=== PATIENT | female | born 1995 | race Caucasian/White ===

== ENCOUNTER 2024-03-09 17:08 | Outpatient (CLI) | payer OTHER, SELFPAY ==
--- OUTSIDE RECORDS SUMMARY | 2024-03-09 17:20 | XMS_ITS | Referral Summary ---
Author Organization [facility] Address [address] [place] [address] Care Team Providers Care Compensator Worker Name Role Phone Evaristo [place] PA-C Primary Care Provide r Source Comments [facility],non-owned Affiliates and Associated Physician Practices is amultiple site organization consisting of ambulatory clinics and hospital sitesin [place], [place], [place] and [place]. This disclosure is being madepursuant to the Care Everywhere program and may not contain all information available regarding this patient. Last updated 17.[facility] [employer] Allergies No known active allergies Social History Tobacco Use Types Packs/Day Years Used Date Smoking Tobacco: Never Assessed Sex and Gender Information Value Date Recorded Sex Assigned at Not on file Gender Identity Not on file Sexual Orientation Not on file Plan of Treatment Not on file Administered Medications Care Teams Compensator Worker Relationship Specialty Start Date End Date Evaristo [place] PA-C [address] [place] [address] PCP - General Physician Recruitment And Outreach Assistant 02/29/20
--- OUTSIDE RECORDS SUMMARY | 2024-03-09 17:20 | XMS_ITS | Clinical Summary ---
Author Organization [facility] Address [address] [place] [address] Care Team Providers Care Hand Wood Sander Name Role Phone Evaristo [place] PA-C Primary Care Provide r Source Comments [facility],non-owned Affiliates and Associated Physician Practices is amultiple site organization consisting of ambulatory clinics and hospital sitesin [place], [place], [place] and [place]. This disclosure is being madepursuant to the Care Everywhere program and may not contain all information available regarding this patient. Last updated 17.[facility] [employer] Allergies No known active allergies Social History Tobacco Use Types Packs/Day Years Used Date Smoking Tobacco: Never Assessed Sex and Gender Information Value Date Recorded Sex Assigned at Not on file Gender Identity Not on file Sexual Orientation Not on file Plan of Treatment Health Maintenance Due Date Last Done Comments PAP SMEAR 1996 HIV SCREENING 05/01/2011 HEPATITIS C SCREENING 04/26/2014 DTAP/TDAP/TD VACCINES (1 - Tdap) 05/01/2015 HEPATITIS B VACCINE (1 of 3 - 19+ 3-dose series) 05/01/2015 COVID-19 VACCINE ( - 2023-2 5 season) 2023 INFLUENZA VACCINE (#1) 2023 DEPRESSION SCREENING 02/09/2024 ZOSTER VACCINE (1 of 2) 2046 HIB VACCINE Aged Out No longer eligi ble based on patient's age to complete this topic HPV VACCINE Aged Out No longer eligi ble based on patient's age to complete this topic MENINGOCOCCAL (Group B) VACCINE Aged Out No longer eligible based on patient's age to complete this topic MENINGOCOCCAL VACCINE Aged Out No mei ángel eligible based on patient's age to complete this topic PNEUMOCOCCAL VACCINE Aged Out No long er eligible based on patient's age to complete this topic Care Teams Hand Wood Sander Relationship Specialty Start Date End Date Evaristo [place] PA-C [address] [place] [address] PCP - General Physician Hand Buffing Wheel Former 02/29/20
--- OUTSIDE RECORDS SUMMARY | 2024-03-09 17:20 | XMS_ITS | Patient Health Summary ---
Author Organization [facility] Address [facility] [facility] [place] [address] Care Team Providers Care Camp Dishwasher Name Role Phone Evaristo [place] PA-C Primary Care Provide r Note from [facility],non-owned Affiliates and Associated Physician Practices is amultiple site organization consisting of ambulatory clinics and hospital sitesin [place], [place], [place] and [place]. This disclosure is being madepursuant to the Care Everywhere program and may not contain all information available regarding this patient. Last updated 17.[facility] Allergies No known active allergies Social History Tobacco Use Types Packs/Day Years Used Date Smoking Tobacco: Never Assessed Sex and Gender Information Value Date Recorded Sex Assigned at Not on file Gender Identity Not on file Sexual Orientation Not on file Procedures * SKIN TEST PPD - POINT OF CARE(Performed 02/29/2020) Performed for Screening examination for pulmonary tuberculosis Results * SKIN TEST PPD - POINT OF CARE (02/29/2020 2:50 PM TOP FLAVOR ATTENDANT) PPD [facility] Other MISCELLANEOUS SAMPLE S / Unknown 02/29/2020 2:50 PM TOP FLAVOR ATTENDANT Suzie Lebron [facility]TENSION SERVICE SPECIALIST-[facility] SU[facility] - POINT OF CARE ORDERABLES [facility] [address] [place] [address], [facility] [phone] Care Teams Camp Dishwasher Relationship Specialty Start Date End Date Evaristo [place] PA-C [address] [place] [address] PCP - General Physician Explosive Operator Fuse 02/29/20
[2024-03-09 17:55] LABS: Basophils Absolute Auto 0.1 K/mm3 (0.0-0.1); Basophils Percent Auto 0.5 % (0.2-1.2); Eosinophils Absolute Auto 0.1 K/mm3 (0-0.3); Eosinophils Percent Auto 0.9 % (0-4.4); Hematocrit 36.7 % (37.0-47.0); Hemoglobin 12.1 g/dL (12.0-15.0); Immature Granulocyte Absolute 0.03 K/mm3 (0.00-0.031); Immature Granulocyte Percent A 0.3 % (0-0.5); Lymphocytes Absolute Auto 2.09 K/mm3 (0.9-3.2); Lymphocytes Percent Auto 19.4 % (18.3-44.2); Mean Corpuscular Hemoglobin 28.4 pg (26-34); Mean Corpuscular Volume 86.2 fl (80-100); Mean Platelet Volume 11.1 fl (7.4-10.4); Monocytes Absolute Auto 0.6 K/mm3 (0.1-0.6); Monocytes Percent Auto 5.7 % (2.6-8.5); Neutrophils Absolute Auto 7.9 K/mm3 (1.3-6.7); Neutrophils Percent Auto 73.2 % (45.5-73.1); Platelet Count Result 259 k/mm3 (150-375); Red Blood Count 4.26 M/mm3 (4.2-5.4); White Blood Count 10.8 K/mm3 (4.5-10.0)
[2024-03-09 19:31] LABS: HIV 1/2 Ab P24 Ag Result Negative (Negative)
[2024-03-09 19:42] LABS: Rubella IgG Antibody 13.4 IU/ML
[2024-03-09 20:05] LABS: Hepatitis B Surface Anti Res Positive
[2024-03-10 13:22] LABS: Rapid Plasma Reagin Non-Reactive (NonReactive)
== END 2024-03-09 17:09 | disposition home or self-care (01) ==
LOC: ANHLAB 17:15
PROVIDERS: Visit Provider Obstetrics & Gynecology
DX: Z34.90 Encounter for supervision of normal pregnancy, unspecified, unspecified trimester (principal); Z3A.00 Weeks of gestation of pregnancy not specified
CPT/HCPCS: 36415; 80307; 85025; 86592; 86703; 86706; 86762; 86850; 87086; G0432

== ENCOUNTER 2024-05-03 08:48 | Outpatient (CLI) | payer OTHER, SELFPAY ==
--- NOTE | ~2024-05-03 | US_ITS ---
EXAMINATION: US OB /maternal detail DATE: 05/03/2024 10:36 INDICATION: Encounter for screening for malformation. TECHNIQUE: Real-time ultrasound of the pelvis was performed. COMPARISON: None. FINDINGS: There is a single living fetus in vertex presentation. The placenta is anterior, 3.1 cm from the cer vix. The cervical length is 3.0 cm on transabdominal images, which is normal.. heart rate is 15 0 beats per minute (bpm). The amniotic fluid volume is subjectively normal. The following biometric data were obtained: Biparietal diameter (BPD): 4.3 cm; head circumference (HC): 16.6 cm; abdominal circumference (AC): 14 .6 cm; femur length (FL): 2.9 cm. These measurements are concordant. Estimated weight is 291 g +/- 44 g, which correlates with the 78th percentile when 09/28/24 is u sed as estimated date of delivery. As single measurements, these parameters are each equal to the following estimated gestational ages: BPD: 19 weeks 1 days. HC: 19 weeks 2 days. AC: 19 weeks 6 days. FL: 19 weeks 0 days. estimated gestational age based solely on measurements from this exam is 19 weeks 2 days +/- 1 weeks 2 days. The cerebral ventricles, cerebellum, cisterna magna, nuchal fold, lip, and spine are normal. The hear t is normal. The diaphragm, stomach, kidneys, and bladder are normal. There are two umbilical arterie s to yield a 3-vessel cord. The cord insertion is normal. IMPRESSION: 1. Single living fetus in vertex presentation. 2. Estimated weight is 291 g +/- 44 g, which correlates with the 78th percentile when 09/28/24 is used as estimated date of delivery. 3. Normal anatomic survey. Reviewed, dictated and finalized at location A. IMPRESSION: 1. Single living fetus in vertex presentation. 2. Estimated weight is 291 g +/- 44 g, which correlates with the 78th pe rcentile when 8/21/25 is used as estimated date of delivery. 3. Normal anatomic survey.
--- OUTSIDE RECORDS SUMMARY | 2024-05-03 09:15 | XMS_ITS | Clinical Summary ---
Author Organization [facility] Address [address] [place] [address] Care Team Providers Care Laboratory Phlebotomist Name Role Phone Evaristo [place] PA-C Primary Care Provide r Source Comments [facility],non-owned Affiliates and Associated Physician Practices is amultiple site organization consisting of ambulatory clinics and hospital sitesin [place], [place], [place] and [place]. This disclosure is being madepursuant to the Care Everywhere program and may not contain all information available regarding this patient. Last updated 17.[facility] [employer] Allergies No known active allergies Social History [...] to complete this topic MENINGOCOCCAL (Group B) VACC INE SHARED DECISION-MAKING Aged Out No longer eligibl e based on patient's age to complete this topic MENINGOCOCCAL GROUPS A/C/Y/W VACCINE Aged Out No longer eligible b ased on patient's age to complete this topic PNEUMOCOCCAL VACCINE Aged Out No long er eligible based on patient's age to complete this topic Care Teams Laboratory Phlebotomist Relationship Specialty Start Date End Date Evaristo [place] PA-C [address] [place] [address] PCP - General Physician Peoplesoft Analyst 02/29/20
== END 2024-05-03 08:49 | disposition home or self-care (01) ==
PROVIDERS: Visit Provider Obstetrics & Gynecology
DX: Z36.3 Encounter for antenatal screening for malformations (principal)
CPT/HCPCS: 76805

== ENCOUNTER 2024-07-10 06:46 | Outpatient (CLI) | payer OTHER, SELFPAY ==
--- OUTSIDE RECORDS SUMMARY | 2024-07-10 06:52 | XMS_ITS | Clinical Summary ---
Author Organization [facility] Address [address] [place] [address] Care Team Providers Care Leaf Tier Name Role Phone Evaristo [place] PA-C Primary Care Provide r Source Comments [facility] Affiliates and Associated Physician Practices is amultiple site organization consisting of ambulatory clinics and hospital sitesin [place], [place], [place] and [place]. This disclosure is being madepursuant to the Care Everywhere program and may not contain all information available regarding this patient. 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 Gender Identity Not on file Sexual Orientation Not on file Plan of Treatment Health Maintenance Due Date Last Done Comments HIV SCREENING 05/01/2011 HEPATITIS C SCREENING 04/26/2014 DTAP/TDAP/TD VACCINES (1 - Tdap) 05/01/2015 HEPATITIS B VACCINE (1 of 3 - 19+ 3-dose series) 05/01/2015 COVID-19 VACCINE ( - 2023-2 5 season) 2023 DEPRESSION SCREENING 02/09/2024 INFLUENZA VACCINE (Season Ended) 2024 ZOSTER VACCINE (1 of 2) 2046 HIB [...] age to complete this topic Care Teams Leaf Tier Relationship Specialty Start Date End Date Evaristo [place] PA-C [address] [place] [address] PCP - General Physician Mannequin Molder 02/29/20
[2024-07-10 07:31] LABS: Glucose Fasting Gestational 95 mg/dL (>/=95)
[2024-07-10 09:08] LABS: Glucose 1 Hour Gest 133 mg/dL (>/=180)
[2024-07-10 10:03] LABS: Glucose 2 Hour Gest 134 mg/dL (>/= 155)
[2024-07-10 11:23] LABS: Glucose 3 Hour Gest 110 mg/dL (>/=140)
== END 2024-07-10 06:47 | disposition home or self-care (01) ==
LOC: ANHLAB 06:50
PROVIDERS: Visit Provider Obstetrics & Gynecology
DX: O24.419 Gestational diabetes mellitus in pregnancy, unspecified control (principal); Z3A.00 Weeks of gestation of pregnancy not specified
CPT/HCPCS: 36415; 82951; 82952

== ENCOUNTER 2024-08-31 08:10 | Outpatient (CLI) | payer OTHER, SELFPAY ==
--- NOTE | ~2024-08-31 | US_ITS ---
EXAM: US OB follow up - 08/31/2024 8:14 CDT History: 29 years old Female with Encounter for supervision of other normal , unspeci Comparison: None available Technique Transabdominal scanning was performed. Findings There is a single live fetus in longitudinal lie and vertex presentation. The heart rate is 143 bpm. Using the expected date of delivery of 09/25/2024, the gestational age is 36 weeks and 3 days. measurements are as follows: Biparietal diameter: 9.22 cm, 37 weeks 3 days Head circumference: 33.23 cm, 37 weeks and 6 days Abdominal circumference: 33.45 cm, 37 weeks and 2 days Femur length: 7.23 cm, 37 weeks and 0 days HC/AC: 0.99, within normal limits. Estimated weight: 3187g +/- 478 g which is between the 5th and 95th percentiles. Utilizing the date of delivery obtained, growth of the BPD, HC, AC, femur and humerus is within naomi l limits. The amount of amniotic fluid is within normal limits. Amniotic fluid index is 4.47 cm which is below the 5th percentile for this stage of . Impression: Decreased SARAH. Utilizing the date of delivery, growth of the BPD, HC, AC, femur and humerus is within normal limits. Reviewed, dictated and finalized at location A. Impression: Decreased SARAH. Utilizing the date of delivery, growth of the BPD, HC, AC, femur and humerus is within normal limits.
== END 2024-08-31 08:11 | disposition home or self-care (01) ==
LOC: MICIMG 08:11
PROVIDERS: PCP Obstetrics & Gynecology; Visit Provider Obstetrics & Gynecology
DX: Z34.80 Encounter for supervision of other normal pregnancy, unspecified trimester (principal); Z3A.00 Weeks of gestation of pregnancy not specified
CPT/HCPCS: 76816

== ENCOUNTER 2024-09-06 09:30 | Outpatient (CLI) | payer OTHER, SELFPAY ==
--- NOTE | ~2024-09-06 | US_ITS ---
EXAMINATION: US OB limited DATE: 09/06/2024 10:12 INDICATION: Oligohydramnios. TECHNIQUE: Real-time ultrasound of the pelvis was performed. The interpreting radiologist was not pre sent for the study. COMPARISON: 08/31/2024 FINDINGS: There is a single living fetus in vertex presentation. The placenta is anterior and not low-lying. F etal heart rate is 153 beats per minute (bpm). The amniotic fluid index is 6.1 cm, which is below nor mal range. (5th%-95%: 7.7-24.9 cm at 36 weeks estimated gestational age). IMPRESSION: 1. Single living fetus in vertex presentation with heart rate of 153 bpm. 2. Persistent oligohydramnios with amniotic fluid index of 6.1 cm which is greater than 2 standard de viations below the mean Reviewed, dictated and finalized at location A. IMPRESSION: 1. Single living fetus in vertex presentation with heart rate of 153 bpm . 2. Persistent oligohydramnios with amniotic fluid index of 6.1 cm which is grea ter than 2 standard deviations below the mean
--- OUTSIDE RECORDS SUMMARY | 2024-09-06 09:52 | XMS_ITS | Clinical Summary ---
Author Organization [facility] Address [address] [facility] [place] [address] Care Team Providers Care Oncology Rep Specialist Name Role Phone Evaristo [place] PA-C Primary Care Provide r Source Comments [facility],non-owned Affiliates and Associated Physician Practices is amultiple site organization consisting of ambulatory clinics and hospital sitesin [place], [place], [place] and [place]. This disclosure is being madepursuant to the Care Everywhere program and may not contain all information available regarding this patient. 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 ASSOCIATE Gender Identity Not on file Sexual Orientation Not on file Plan of Treatment Health Maintenance Due Date Last Done Comments HIV SCREENING 05/01/2011 HEPATITIS C SCREENING 04/26/2014 DTAP/TDAP/TD VACCINES (1 - Tdap) 05/01/2015 HEPATITIS B VACCINE (1 of 3 - 19+ 3-dose series) 05/01/2015 HPV VACCINE (1 - 3-dose SCDM series) 05/01/2023 COVID-19 VACCINE ( - 2023-2 5 season) 2023 DEPRESSION SCREENING 02/09/2024 INFLUENZA VACCINE (#1) 2024 ZOSTER VACCINE (1 of 2) 2046 [...] age to complete this topic Care Teams Oncology Rep Specialist Relationship Specialty Start Date End Date Evaristo [place] PA-C [address] [place] [address] PCP - General Physician French Polisher 02/29/20
== END 2024-09-06 09:31 | disposition home or self-care (01) ==
PROVIDERS: PCP Obstetrics & Gynecology; Visit Provider Obstetrics & Gynecology
DX: O41.00X0 Oligohydramnios, unspecified trimester, not applicable or unspecified (principal); Z3A.00 Weeks of gestation of pregnancy not specified
CPT/HCPCS: 76815

== ENCOUNTER 2024-09-11 14:37 | Outpatient (CLI) | payer OTHER, SELFPAY ==
--- NOTE | ~2024-09-11 | US_ITS ---
US OB limited 09/11/2024 15:20 Indication: Oligohydramnios Procedure: High-resolution Limited obstetrical ultrasound Comparison: Ultrasound dated 09/06/2024 Findings: Single living intrauterine in vertex presentation with heart rate of 135 BP M. Placenta anterior without previa. Oligohydramnios. SARAH measures 5.6 cm. Impression: 1: Oligohydramnios. SARAH measures 5.6 cm. Reviewed, dictated and finalized at location A. Impression: 1: Oligohydramnios. SARAH measures 5.6 cm.
--- OUTSIDE RECORDS SUMMARY | 2024-09-11 14:53 | XMS_ITS | Clinical Summary ---
Author Organization [facility] Address [address] [place] [address] Care Team Providers Care Property Claim Rep Name Role Phone Evaristo [place] PA-C Primary Care Provide r Source Comments [facility],non-owned Affiliates and Associated Physician Practices is amultiple site organization consisting of ambulatory clinics and hospital sitesin [place], [place], [place] and [place]. This disclosure is being madepursuant to the Care Everywhere program and may not contain all information available regarding this patient. 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
== END 2024-09-11 14:38 | disposition home or self-care (01) ==
LOC: ANHIMG 14:40
PROVIDERS: PCP Obstetrics & Gynecology; Visit Provider Obstetrics & Gynecology
DX: O41.03X0 Oligohydramnios, third trimester, not applicable or unspecified (principal); Z3A.00 Weeks of gestation of pregnancy not specified
CPT/HCPCS: 76815

== ENCOUNTER 2024-09-13 06:18 | Inpatient (IN) | payer OTHER, SELFPAY ==
[2024-09-13] VITALS (53 sets, daily range): BP systolic 109–137; BP diastolic 52–106; PULSE 84–145; RESP 14–18; TEMP 36.4–37.6; O2SAT 95–100; BMI 27.3
--- OUTSIDE RECORDS SUMMARY | 2024-09-13 06:25 | XMS_ITS | Clinical Summary ---
Author Organization [facility] Address [address] [place] [place] [address] Care Team Providers Care Merchant Mariner Name Role Phone Evaristo [place] PA-C Primary Care Provide r Source Comments [facility],non-owned Affiliates and Associated Physician Practices is amultiple site organization consisting of ambulatory clinics and hospital sitesin [place], [place], [place] and [place]. This disclosure is being madepursuant to the Care Everywhere program and may not contain all information available regarding this patient. 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
--- NOTE | 2024-09-13 06:50 | P.HP_ITS ---
H&P: HPI History of Present Illness Date/Time: 09/13/24 06:50 Chief Complaint: Gestational hypertension Narrative: This is a 28-year-old 1 para 0 whose last menstrual period was 12/23/2023, EDC is 09/25/2024, confirmed by 10 week ultrasound who presents at 38 weeks and 2 days for induction of labor secondary to elevated blood pressures. She has a 10 week ultrasound confirming dates she has has oligohy dramnios with mildly elevated blood pressure. Her cervix is favorable and she is thus admitted for induction of labor she is negative for group B strep and failed her 1hour glucose test but passed her 3hour Review of Systems Review of Systems: All systems reviewed & are unremarkable except as noted in HPI and below PMFSH Family History Family History Father Hypertension Social History Social History Smoking status: Never smoker Second hand tobacco smoke exposure: No Alcohol intake: current Substance use: never Current Housing: Decline to Answer Concerned About Future Housing: Decline to Answer Difficulty Paying Gas/Electric Bills: Decline to Answer Difficulty Paying for Meds: Decline to Answer Currently Unemployed: Decline to Answer Education: Decline to Answer Difficulty w/ Childcare or Family Care: Decline to Answer Spiritual care concerns: No Meds Home Medications and Allergies Home Medications ?Medication ?Instructions ?Recorded ?Confirmed ?Type loratadine 10 mg tablet 10 mg PO DAILY 08/19/24 08/19/24 History (Raysa) Allergies Allergy/AdvReac Type Severity Reaction Status Date / Time blue dye AdvReac Intermediate Abdominal Verified 08/19/24 12:08 Pain mushrooms AdvReac Intermediate Numbness Uncoded 08/19/24 12:08 Vital Signs Vital Signs - 24 hr 09/13/24 06:37 09/13/24 06:46 Pulse Rate 104 H 95 Blood Pressure 128/86 123/91 H Exam Const: General: cooperative, healthy appearing and comfortable Nutritional Appearance: average body habitus Orientation/consciousness: oriented to person, oriented to place and oriented to time HENMT: Head: normal to inspection Resp: Effort & Inspection: normal respiratory effort Cardio: Rate: regular rate Rhythm: regular rhythm Heart sounds: S1 normal heart sound present and S2 normal heart sound present GI: Inspection: normal to inspection (Gravid soft uterus) : External Female Exam: normal external appearance Speculum Exam - Vagina: normal appearance of the vagina Speculum Exam - Cervix: normal appearance of the cervix (Cervix 4/80/-1. AROM clear. FHT is reassuring) Assessment and Plan Assessment and plan (1) Term : Code(s): Z34.90 - Encounter for supervision of normal , unspecified, unspecified trimester Status: Acute (2) Oligohydramnios: Code(s): O41.00X0 - Oligohydramnios, unspecified trimester, not applicable or unspecified Status: Acute (3) Gestational hypertension: Code(s): O13.9 - Gestational [-induced] hypertension without significant proteinuria, unspecified trimester Status: Acute Plan Medical induction of labor. Spontaneous vaginal delivery expected. She is an epidural candidate
[2024-09-13 07:14] LABS: Hematocrit 34.6 % (37.0-47.0); Hemoglobin 11.2 g/dL (12.0-15.0); Immature Granulocyte Percent A 0.7 % (0-0.5); Lymphocytes Absolute Auto 1.46 K/mm3 (0.9-3.2); Mean Corpuscular HGB Conc 32.4 g/dl (32-36); Mean Corpuscular Hemoglobin 27.9 pg (26-34); Mean Corpuscular Volume 86.1 fl (80-100); Nucleated Red Blood Cells Absolute Auto 0.000 K/mm3 (0.0-0.012); Nucleated Red Blood Cells Perc 0.0 % (0.0-0.2); Platelet Count Result 249 k/mm3 (150-375); Red Blood Count 4.02 M/mm3 (4.2-5.4); White Blood Count 10.5 K/mm3 (4.5-10.0)
[2024-09-13] MEDS: LACTATED RINGERS 1,000 ML 125 ML IV CONT (07:31)
[2024-09-13] MEDS: OXYTOCIN 30 UNITS/NS 500 ML 30 UNITS/500 ML BAG 6 UNITS IV CONT (07:32)
--- NOTE | 2024-09-13 07:34 | LDADM ---
This patient, Radha Yoder, was admitted to Labor/Delivery/Recovery 108 on 09/13/24 at 06:18. Plans for labor, pain management and were discussed with patient. Patient/family oriented to hospital policies and general routines including ID bracelet, bed and alarms, visiting hours, pain management, procedures, bathroom and other care routines, personal items, smoking policy, room service/diet and guest tray routines, security routines, and visiting hours. Patient/Family are encouraged to report perceived risks to care and to ask questions if they do not understand what they are told or what they should do. See OBIX for further documentation.
--- NOTE | 2024-09-13 08:12 | P.PNAN_ITS ---
Anes - Eval Pre Procedure Procedure: Labor epidural Date/Time: 09/13/24 08:12 Surgeon: Giselle Preop Diagnosis: pain during labor Pre Op Diagnosis: IOL Patient Data Age: 29 Gender: F Height: 1.6 m Weight: 70 kg Last Vital Signs Temp 37.6 C 09/13/24 07:00 Pulse 99 09/13/24 08:01 BP 132/85 09/13/24 08:01 O2 Del Method Room Air 09/13/24 07:33 Allergies Allergy/AdvReac Type Severity Reaction Status Date / Time blue dye AdvReac Intermediate Abdominal Verified 09/13/24 07:41 Pain mushrooms AdvReac Intermediate Numbness Uncoded 09/13/24 07:41 Home Medications ?Medication ?Instructions ?Recorded ?Confirmed ?Type loratadine 10 mg tablet 10 mg PO DAILY 08/19/24 09/13/24 History (Allerclear) vit no.95-ferrous 1 tablet PO DAILY 09/13/24 09/13/24 History fumarate 28 mg-folic acid 800 mcg tablet () Laboratory Tests 09/13/24 06:53 WBC 10.5 H K/mm3 (4.5-10.0) RBC 4.02 L M/mm3 (4.2-5.4) Hgb 11.2 L g/dL (12.0-15.0) Hct 34.6 L % (37.0-47.0) MCV 86.1 fl (80-100) MCH 27.9 pg (26-34) MCHC 32.4 g/dl (32-36) RDW 13.0 % (11.5-14.5) Plt Count 249 k/mm3 (150-375) MPV 11.0 H fl (7.4-10.4) Immature Gran % (Auto) 0.7 H % (0-0.5) Neut % (Auto) 77.7 H % (45.5-73.1) Lymph % (Auto) 14.0 L % (18.3-44.2) [place] % (Auto) 5.4 % (2.6-8.5) Eos % (Auto) 1.8 % (0-4.4) Baso % (Auto) 0.4 % (0.2-1.2) Lymph # (Auto) 1.46 K/mm3 (0.9-3.2) [place] # (Auto) 0.6 K/mm3 (0.1-0.6) Eos # (Auto) 0.2 K/mm3 (0-0.3) Baso # (Auto) 0.0 K/mm3 (0.0-0.1) Abs Immat Gran (auto) 0.07 H K/mm3 (0.00-0.031) Absolute Neuts (auto) 8.1 H K/mm3 (1.3-6.7) Absolute Nucleated RBC 0.000 K/mm3 (0.0-0.012) Nucleated RBC % 0.0 % (0.0-0.2) Blood Type O Positive Antibody Screen Negative Patient hx anesthesia problems: none Family hx anesthesia problems: none Results Review: All pre-operative results and documents have been reviewed as part of the pre- operative evaluation. [facility] Family History Family History Father Hypertension Social History Social History Smoking status: Never smoker Second hand tobacco smoke exposure: No Alcohol intake: current Substance use: never Lack of Transportation: No Lack of Food: Never True Current Housing: I Have Housing Concerned About Future Housing: No Difficulty Paying Gas/Electric Bills: No Difficulty Paying for Meds: No Currently Unemployed: No Education: Master's Degree or Higher Difficulty w/ Childcare or Family Care: No Spiritual care concerns: No Exam Day of Procedure 09/13/24 08:12
[2024-09-13] MEDS: fentaNYL CITRATE INJ (*CRX) 100 MCG/2 ML VIAL IV PUSH ×2 (09:15→10:12)
[2024-09-13 09:24] LABS: Syphilis IgG/IgM Antibody Non-Reactive (Nonreactive)
[2024-09-13] MEDS: ONDANSETRON INJ 4 MG/2 ML VIAL IV PUSH (10:15)
[2024-09-13] MEDS: METHYLERGONOVINE MALEATE 0.2 MG/ML VIAL (12:13)
--- NOTE | 2024-09-13 12:19 | PM.OBPRVD ---
OB - Vaginal Delivery Note Procedure Delivery date: 09/13/24 Events: Oligohydramnios and Other (All in diet dry and yells) Induction method: AROM Delivery augmentation: Pitocin Delivery monitor: External FHT, External Uterine and Internal Uterine Route of delivery: Episiotomy description: None Laceration Description: Perineal - 1st Degree Specimen: No Quantitative Blood Loss (ml): 300 Anesthesia type: None Disposition: Floor Complications: No immediate complications Narrative: Patient was admitted for induction of labor at 38 weeks gestation secondary to oligohydramnios artificial rupture membranes performed she had a unremarkable 1st stage of labor she declined epidural anesthesia when she was complete she pushed delivered the head spontaneously in the JOSE M position. Anterior posterior shoulder delivered spontaneously. Cord clamped 2 and cut and passed off the table with an excellent cry. A small first-degree laceration was noted after the placenta delivered spontaneously for the first-degree tear was not big enough and not bleeding. She did have some uterine atony and received a dose of Methergine QBL was 300cc. All sponge, needle, instrument counts were correct. [place] Baby Date of : 09/13/24 Time of : 12:03 Gestational Age by Date: 39 gender: Male presentation: vertex position: Right Occiput Anterior Placenta delivery description: Spontaneous Cord Vessel Description: 3 Vessels
--- NOTE | 2024-09-13 12:22 | PM.DS ---
DS: Admitting Diagnosis Discharge Date 09/15/2024 Admitting Diagnosis Term /oligohydramnios DS: Discharge Diagnosis Discharge Diagnosis (1) Term : Code(s): Z34.90 - Encounter for supervision of normal , unspecified, unspecified trimester Status: Acute (2) Oligohydramnios: Code(s): O41.00X0 - Oligohydramnios, unspecified trimester, not applicable or unspecified Status: Acute DS: Summary Hospital Course Reason for hospitalization: Patient was admitted on 09/13/2024 for induction of labor secondary to oligohydramnios at 38 weeks gestation. She underwent spontaneous vaginal delivery which was Hospital Course: Patient's hospital course unremarkable she afebrile. She was up, voiding, ambulating, and generally without complaints Time Spent with Patient Time attestation: Total time spent providing and/or coordinating discharge services: Exam Const: General: cooperative, healthy appearing and comfortable Nutritional Appearance: average body habitus Orientation/consciousness: oriented to person, oriented to place and oriented to time HENMT: Head: normal to inspection Resp: Effort & Inspection: normal respiratory effort Cardio: Rate: regular rate Rhythm: regular rhythm Heart sounds: S1 normal heart sound present and S2 normal heart sound present GI: Inspection: normal to inspection (Gravid soft uterus) : External Female Exam: normal external appearance Speculum Exam - Vagina: normal appearance of the vagina Speculum Exam - Cervix: normal appearance of the cervix (Cervix 4/80/-1. AROM clear. FHT is reassuring) DS: Data Data Completed and Pending Labs on day of discharge: Labs from last 24 hours 09/13/24 06:53 WBC 10.5 H RBC 4.02 L Hgb 11.2 L Hct 34.6 L MCV 86.1 MCH 27.9 MCHC 32.4 RDW 13.0 Plt Count 249 MPV 11.0 H Immature Gran % (Auto) 0.7 H Neut % (Auto) 77.7 H Lymph % (Auto) 14.0 L [place] % (Auto) 5.4 Eos % (Auto) 1.8 Baso % (Auto) 0.4 Lymph # (Auto) 1.46 [place] # (Auto) 0.6 Eos # (Auto) 0.2 Baso # (Auto) 0.0 Abs Immat Gran (auto) 0.07 H Absolute Neuts (auto) 8.1 H Absolute Nucleated RBC 0.000 Nucleated RBC % 0.0 Syphilis IgG/IgM Ab Non-reactive Blood Type O Positive Antibody Screen Negative Discharge Plan Discharge Attending physician on discharge: Rei Wills Discharging Clinician: Rei Wills Patient Disposition: Home Activity: may shower, no straining and pelvic rest Diet: heart healthy Wound Care Instructions: follow printed instructions Patient Instructions: Antibiotic Form Patient Language: [place] Islander Stand Alone Forms: General Discharge Information Follow-up/Referrals: Rei Wills MD [Physician] - Discharge Medications: Continued loratadine [Allerclear] 10 mg tablet 10 mg PO DAILY PNV no.95-ferrous fumarate-FA [] 28 mg iron- 800 mcg tablet 1 tablet PO DAILY Date of admission: 09/13/24 06:18 Primary Care Provider: Chintan Holguin Admitting Provider: Rei Wills Attending physician on admission: Rei Wills Condition: Stable
[2024-09-13] MEDS: OXYTOCIN 30 UNITS/NS 500 ML 30 UNITS/500 ML BAG 125 UNITS IV CONT (12:46)
[2024-09-13] MEDS: WITCH HAZEL 40 PADS 1 PAD TOPICAL (18:00)
[2024-09-13] MEDS: BENZOCAINE 20% AER SPR (*SP) 56 GM CAN 1 SPRAY TOPICAL (18:00)
[2024-09-14 04:32] VITALS: PULSE 96; O2SAT 97
[2024-09-14 04:33] VITALS: BP 102/61; PULSE 93; RESP 18; TEMP 36.7
[2024-09-14 04:54] LABS: Hematocrit 23.9 % (37.0-47.0); Hemoglobin 7.7 g/dL (12.0-15.0)
--- NOTE | 2024-09-14 06:11 | P.PNOB_ITS ---
OB - PN: Subj Subjective Date/time seen: 09/14/24 06:11 Patient comments: no complaints, pain well controlled and tolerating diet [place] baby status: doing well and nursing well OB - PN: Obj Data Labs 09/14/24 04:37 Labs: Laboratory Results - last 24 hr 09/13/24 09/14/24 06:53 04:37 WBC 10.5 H RBC 4.02 L Hgb 11.2 L 7.7 L D Hct 34.6 L 23.9 L MCV 86.1 MCH 27.9 MCHC 32.4 RDW 13.0 Plt Count 249 MPV 11.0 H Immature Gran % (Auto) 0.7 H Neut % (Auto) 77.7 H Lymph % (Auto) 14.0 L [place] % (Auto) 5.4 Eos % (Auto) 1.8 Baso % (Auto) 0.4 Lymph # (Auto) 1.46 [place] # (Auto) 0.6 Eos # (Auto) 0.2 Baso # (Auto) 0.0 Abs Immat Gran (auto) 0.07 H Absolute Neuts (auto) 8.1 H Absolute Nucleated RBC 0.000 Nucleated RBC % 0.0 Syphilis IgG/IgM Ab Non-reactive Blood Type O Positive Antibody Screen Negative OB - PN A/P Assessment and Plan (1) Term : Code(s): Z34.90 - Encounter for supervision of normal , unspecified, unspecified trimester Status: Acute Plan start iron Time Spent With Patient Time: Total time spent is greater than 50% in coordination of care (as documented) at patient's floor/unit and/or counseling patient: Review of Systems 2 Review of Systems: All systems reviewed & are unremarkable except as noted in HPI and below Exam 2 Const: General: cooperative, healthy appearing and comfortable Nutritional Appearance: average body habitus Orientation/consciousness: oriented to person, oriented to place and oriented to time HENMT: Head: normal to inspection Resp: Effort & Inspection: normal respiratory effort Cardio: Rate: regular rate Rhythm: regular rhythm Heart sounds: S1 normal heart sound present and S2 normal heart sound present GI: Inspection: normal to inspection (Gravid soft uterus) : External Female Exam: normal external appearance Speculum Exam - Vagina: normal appearance of the vagina Speculum Exam - Cervix: normal appearance of the cervix (Cervix 4/80/-1. AROM clear. FHT is reassuring)
[2024-09-14 07:20] VITALS: BP 115/74; PULSE 109; RESP 16; TEMP 36.9; O2SAT 99
[2024-09-14 08:35] VITALS: BP 98/59; PULSE 86; RESP 16; TEMP 36.2; O2SAT 97
[2024-09-14] MEDS: MULTIVIT W/ IRON, MINERALS 15 ML LIQUID (*BKC) PO (10:19)
[2024-09-14 12:41] VITALS: BP 118/71; PULSE 104; RESP 18; TEMP 36.8; O2SAT 99
--- NOTE | 2024-09-14 15:38 | PC.NURSE ---
Introductions were made, then consulted with patient to assess needs related to . Mother led the conversation with her?plans to feed?her infant and the?experience so far. Mother is currently using a nipple shield and able to nurse infant independently. Reviewed good handwashing, cleaning the nipple shield and the appropriate way to apply and use as a tool. Discussed with mom the nipple shield precautions, possible complications associated with the risks and benefits. Reviewed practicing with a nipple shield, then without and how to protect the milk supply and production. Instructions given on cleaning, care, usage, that there should be no pain, pumping schedule for milk production, collection, and storage of human milk when using her breast pump.
[2024-09-14 19:30] VITALS: BP 108/61; PULSE 95; RESP 18; TEMP 36.7; O2SAT 98
--- NOTE | 2024-09-15 06:35 | P.PNOB_ITS ---
OB - PN: Subj Subjective Date/time seen: 09/15/24 06:35 Patient comments: no complaints and pain well controlled baby status: doing well OB - PN: Obj Data Labs 09/14/24 04:37 OB - PN A/P Assessment and Plan (1) Term : Code(s): Z34.90 - Encounter for supervision of normal , unspecified, unspecified trimester Status: Acute (2) Oligohydramnios: Code(s): O41.00X0 - Oligohydramnios, unspecified trimester, not applicable or unspecified Status: Acute Plan home Time Spent With Patient Time: Total time spent is greater than 50% in coordination of care (as documented) at patient's floor/unit and/or counseling patient: Review of Systems 2 Review of Systems: All systems reviewed & are unremarkable except as noted in HPI and below Exam 2 Const: General: cooperative, healthy appearing and comfortable Nutritional Appearance: average body habitus Orientation/consciousness: oriented to person, oriented to place and oriented to time HENMT: Head: normal to inspection Resp: Effort & Inspection: normal respiratory effort Cardio: Rate: regular rate Rhythm: regular rhythm Heart sounds: S1 normal heart sound present and S2 normal heart sound present GI: Inspection: normal to inspection (Gravid soft uterus) : External Female Exam: normal external appearance Speculum Exam - Vagina: normal appearance of the vagina Speculum Exam - Cervix: normal appearance of the cervix (Cervix 4/80/-1. AROM clear. FHT is reassuring)
[2024-09-15 07:45] VITALS: BP 114/73; PULSE 84; RESP 16; TEMP 36.9; O2SAT 95
[2024-09-15] MEDS: MULTIVIT W/ IRON, MINERALS 15 ML LIQUID (*BKC) PO (09:19)
[2024-09-18 11:07] VITALS: BP 117/73; PULSE 104; RESP 18; TEMP 37.2; O2SAT 100
== END 2024-09-15 14:32 | disposition home or self-care (01) | DRG 806 ==
LOC: ANHLDR 12:23 → ANHOB2 09-14 07:25
PROVIDERS: Admitting Provider Obstetrics & Gynecology; PCP Nurse Practitioner; Visit Provider Obstetrics & Gynecology
DX: O13.4 Gestational [pregnancy-induced] hypertension without significant proteinuria, complicating childbirth (principal); O41.03X0 Oligohydramnios, third trimester, not applicable or unspecified; Z37.0 Single live birth; O70.0 First degree perineal laceration during delivery; O62.3 Precipitate labor; Z3A.38 38 weeks gestation of pregnancy
CPT/HCPCS: 36415; 85014; 85018; 85025; 86593; 86850; 86900; 86901; A9270; J2210; J2405; J2590; J3010; J7120

== ENCOUNTER 2024-12-07 11:21 | Outpatient (CLI) | payer OTHER, SELFPAY ==
[2024-12-07 12:36] LABS: Beta HCG Quantitative 347.70 mIU/ML
== END 2024-12-07 11:22 | disposition home or self-care (01) ==
LOC: ANHLAB 11:26
PROVIDERS: PCP Nurse Practitioner; Visit Provider Obstetrics & Gynecology
DX: Z32.00 Encounter for pregnancy test, result unknown (principal)
CPT/HCPCS: 36415; 84144; 84702

== ENCOUNTER 2024-12-14 17:00 | Outpatient (CLI) | payer OTHER, SELFPAY ==
[2024-12-14 17:46] LABS: Beta HCG Quantitative 12680.00 mIU/ML
== END 2024-12-14 17:01 | disposition home or self-care (01) ==
LOC: ANHLAB 17:03
PROVIDERS: PCP Nurse Practitioner; Visit Provider Obstetrics & Gynecology
DX: Z34.80 Encounter for supervision of other normal pregnancy, unspecified trimester (principal)
CPT/HCPCS: 36415; 84702

== ENCOUNTER 2024-12-29 12:26 | Outpatient (CLI) | payer OTHER, SELFPAY ==
--- NOTE | ~2024-12-29 | US_ITS ---
EXAMINATION: US OB <=14 wk fetus w TV DATE: 12/29/2024 13:08 INDICATION: Threatened TECHNIQUE: Real-time pelvic ultrasound utilizing both a transvaginal and transabdominal probe was performed. The interpreting radiologist was not present for the study. COMPARISON: None. FINDINGS: The uterus measures 12.6 x 5.5 x 8.1 cm. There is an intrauterine gestational sac. A yolk sac and pole are identified. The crown rump length measures 1.2 cm, which correlates with an estimated gestational age of 7 weeks and 3 days. heart motion is identified measuring 160 beats per minute (bpm) by M-mode Doppler. The right ovary measures 3.2 x 3.0 x 2.5 cm. 2.2 cm hypoechoic likely corpus luteum cyst in the right ovary. The left ovary measures 1.9 x 1.8 x 1.2 cm. There is no free fluid in the pelvis. IMPRESSION: 1. Single living fetus with heart of 160 bpm. 2. Gestational age by ultrasound of 7 weeks 3 day(s) +/- 5 day(s) with ultrasound estimated date of delivery ([facility]) of 08/14/2025. Reviewed, dictated and finalized at location A. [facility] IMPRESSION: 1. Single living fetus with heart of 160 bpm. 2. Gestational age by ultrasound of 7 weeks 3 day(s) +/- 5 day(s) with ultraso und estimated date of delivery ([facility]) of 08/14/2025.
== END 2024-12-29 12:27 | disposition home or self-care (01) ==
LOC: MICIMG 12:27
PROVIDERS: PCP Obstetrics & Gynecology; Visit Provider Obstetrics & Gynecology
DX: O20.0 Threatened abortion (principal); Z3A.00 Weeks of gestation of pregnancy not specified
CPT/HCPCS: 76801; 76817